=== PATIENT | female | born 1970 | race Caucasian/White ===

== ENCOUNTER 2018-06-09 13:50 | Emergency (ER) | payer OTHER ==
[~2018-06-09] VITALS: Ht 167.6 cm; Wt 57.6 kg
[2018-06-09 13:54] VITALS: BP 124/90
[2018-06-09 14:15] VITALS: BP 124/90
== END 2018-06-09 14:16 ==
LOC: MED 13:50
DX: H60.93 Unspecified otitis externa, bilateral (principal); Z02.89 Encounter for other administrative examinations; I10 Essential (primary) hypertension; F17.210 Nicotine dependence, cigarettes, uncomplicated
CPT/HCPCS: 99283

== ENCOUNTER 2019-01-29 02:52 | Inpatient (IN) | payer MEDICAID, OTHER ==
[~2019-01-29] VITALS: Ht 167.6 cm; Wt 59.0 kg
[2019-01-29 02:55] VITALS: BP 128/80
--- NOTE | 2019-01-29 03:46 | NUR ---
PT TAKEN TO BED 3
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
[2019-01-29] MEDS ORDERED: MORPHINE SULFATE 4 MG/ML SYR IVP ONE ×2 (06:35→10:10)
[2019-01-29 06:39] LABS: HEMOGLOBIN 12.2 g/dL (12.0-16.0); MEAN CORPUSCULAR HEMOGLOBIN 32 pg (27-31)
[2019-01-29 06:45] LABS: BASOPHILS % (AUTO) 0.3 % (0.0-2.0); EOSINOPHILS # (AUTO) 0.1 K/uL (0-0.4); HEMATOCRIT 35.5 % (36-48); LYMPHOCYTES # (AUTO) 2.5 K/uL (2.5-16.5); LYMPHOCYTES % (AUTO) 25.1 % (20.5-51.1); MEAN CORPUSCULAR HGB CONC 34 g/dL (33-37); MEAN CORPUSCULAR VOLUME 93.2 fL (80-94); MONOCYTES # (AUTO) 0.8 K/uL (0.8-1.0); MONOCYTES % (AUTO) 8.4 % (1.7-9.3); NEUTROPHILS # (AUTO) 6.6 K/uL (1.8-7.7); NEUTROPHILS % (AUTO) 65.2 % (42.2-75.2); PLATELET COUNT (AUTO) 205 K/uL (140-450); RED BLOOD CELL COUNT(AUTO) 3.81 MIL/uL (4.20-5.40); RED CELL DISTRIBUTION WIDTH 12.9 % (11.6-13.7); WHITE BLOOD COUNT (AUTO) 10.1 K/uL (4.8-10.8)
[2019-01-29 07:32] LABS: APPEARANCE,URINE CLEAR (CLEAR); BILIRUBIN,URINE NEGATIVE (NEGATIVE); BLOOD, URINE TRACE-I (NEGATIVE); COLOR,URINE YELLOW (YELLOW); LEUKOCYTE ESTERASE ,URINE NEGATIVE (NEGATIVE); NITRITE, URINE NEGATIVE (NEGATIVE); UGLUCOSE NEGATIVE (NEGATIVE)
[2019-01-29 08:05] LABS: ANION GAP 13.4 (8-16); CREATININE 0.8 mg/dL (0.6-1.3); POTASSIUM 3.4 mmol/L (3.5-5.1)
[2019-01-29 08:11] LABS: ALBUMIN 3.4 g/dL (3.4-5.0); TOTAL BILIRUBIN 0.8 mg/dL (0.0-1.0)
--- NOTE | 2019-01-29 08:23 | NUR ---
Patient appears to be resting in bed. Vital Signs within normal limits. Respirations even and unlabored.
--- NOTE | 2019-01-29 08:23 | NUR ---
Patient taken to CT scan via gurney by [employer].
--- NOTE | 2019-01-29 08:30 | NUR ---
RECEIVED REPORT FROM ADIA FITZGERALD FOR TRANSFER OF CARE
[2019-01-29 08:49] LABS: RBC,URINE 0-5 /HPF (0-5); WBC,URINE 0-5 /HPF (0-5)
--- NOTE | 2019-01-29 09:48 | NUR ---
DR HERNANDEZ AT BEDSIDE FOR PT RE EVALUATION
--- NOTE | 2019-01-29 09:55 | NUR ---
SWELLING NOTED TO LEFT UPPER ARM. DR HERNANDEZ MADE AWARE
--- NOTE | 2019-01-29 09:59 | NUR ---
ICE PACKS PROVIDED FOR ON PT'S LEFT ARM. PT TOLERATED WELL.
[2019-01-29] MEDS: NACL 0.9% 1,000 ML IV SCH (10:08)
[2019-01-29] MEDS ORDERED: CLINDAMYCIN 600 MG in DEXTROSE 5% 50 ML IV ONE (10:10)
[2019-01-29] MEDS ORDERED: MORPHINE SULFATE 2 MG/ML SYR IVP PRN (10:10)
[2019-01-29] MEDS ORDERED: ACETAMINOPHEN 325 MG TAB PO PRN (10:10)
[2019-01-29] MEDS ORDERED: ONDANSETRON 4 MG/2 ML VIAL IM/IVP PRN (10:10)
[2019-01-29] MEDS ORDERED: ONDANSETRON 4 MG/2 ML VIAL IVP ONE (10:10)
[2019-01-29] MEDS ORDERED: HYDROcodone/APAP 5/325 MG 1 TAB TAB PO PRN (10:10)
--- NOTE | 2019-01-29 10:23 | NUR ---
Dr. Mccormick evaluating patient at bedside.
--- NOTE | 2019-01-29 10:32 | NUR ---
laboratory technical specialist at bedside.
[2019-01-29] MEDS ORDERED: CLINDAMYCIN 600 MG/4 ML VIAL ONE (10:49)
[2019-01-29] MEDS ORDERED: KETOROLAC 30 MG/ML VIAL IM PRN (11:05)
[2019-01-29 11:09] LABS: PROTHROMBIN TIME 9.5 secs (10.8-13.4)
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
--- NOTE | 2019-01-29 11:15 | NUR ---
Patient will be admitted to care of DR MEEK. Admited to 112 B. Will go to room. Belongings list completed. Report to ADIA LONGO.
[2019-01-29 11:18] LABS: MAGNESIUM 1.9 mg/dL (1.8-2.4); PHOSPHORUS 3.5 mg/dL (2.5-4.9); THYROID STIMULATING HORMONE 0.76 uIU/mL (0.34-3.74)
[2019-01-29 11:55] VITALS: BP 121/81
[2019-01-29] MEDS ORDERED: POTASSIUM CHLORIDE 10 MEQ TABER PO SCH (12:00)
[2019-01-29] MEDS: KETOROLAC 30 MG/ML VIAL IVP PRN ×2 (12:11→18:32)
--- NOTE | 2019-01-29 12:14 | NUR ---
GAVE TORADOL 1ML PER MD ORDER. PT STABLE.
[2019-01-29 12:53] LABS: BARBITURATE, URINE NEG. ng/ml (NEG <=200); BENZODIAZEPINE, URINE NEG. ng/mL (NEG <=200); CANNABINOID, URINE NEG. ng/mL (NEG <=50); COCAINE, URINE NEG. ng/mL (NEG <=300); OPIATE, URINE NEG. ng/mL (NEG <=2000); PHENCYCLIDINE SCREEN,URINE NEG. ng/mL (NEG <=25)
--- NOTE | 2019-01-29 15:00 | NUR ---
PATIENT HAS BEEN SCREENED AND CATEGORIZED LOW NUTRITION RISK. PATIENT WILL BE SEEN WITHIN 7 DAYS OF ADMISSION. 02/04/[address]
--- NOTE | 2019-01-29 15:18 | NUR ---
PT SLEEPING COMFORTABLY. PT HAD XRAY OF LUMBAR SPINE DONE EARLIER. PAIN MEDS EFFECTIVE FOR PT. WILL CONTINUE TO MONITOR.
[2019-01-29 16:42] VITALS: BP 104/67
--- NOTE | 2019-01-29 19:10 | NUR ---
GAVE BEDSIDE REPORT TO EQUIPMENT PROCESSOR RN. PT STABLE.
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
--- NOTE | 2019-01-29 20:20 | NUR ---
PT TAKES A SHOWER.
[2019-01-29] MEDS: CLINDAMYCIN 600 MG in DEXTROSE 5% 50 ML IV SCH (21:04)
--- NOTE | 2019-01-29 21:04 | NUR ---
CHANGED DRESSING ON LEFT FOREARM D/T SOILED. GIVEN CLEOCIN MD ORDERED, PT TOLERATED WELL. WILL CONTINUE TO MONITOR.
--- NOTE | 2019-01-29 23:55 | NUR ---
VS CHECKED, WITHIN PT'S BASELINE. WILL CONTINUE TO MONITOR.
[2019-01-30] VITALS: BP 107/66
--- NOTE | 2019-01-30 02:05 | NUR ---
PT SLEEPING IN BED COMFORTABLY. NO ACUTE DISTRESS NOTED.
[2019-01-30] MEDS: NACL 0.9% 1,000 ML IV SCH ×2 (02:48→19:28)
[2019-01-30] MEDS: KETOROLAC 30 MG/ML VIAL IVP PRN ×2 (03:37→15:00)
--- NOTE | 2019-01-30 03:37 | NUR ---
PT C/O FACE PAIN 11/13, GIVEN TORADOL MD ORDERED. PT TOLERATED WELL. WILL CONTINUE TO MONITOR.
--- NOTE | 2019-01-30 05:25 | NUR ---
PT SLEEPING IN BED. NO ACUTE DISTRESS NOTED.
[2019-01-30] MEDS: CLINDAMYCIN 600 MG in DEXTROSE 5% 50 ML IV SCH (05:26)
[2019-01-30 06:07] LABS: T4 (THYROXINE) 6.3 ug/dL (4.5-12.0)
--- NOTE | 2019-01-30 06:30 | NUR ---
PT SLEEPING, APPEARS IN NO DISTRESS, ON RA. TORADOL GIVEN BY DIESEL TRAILER MECHANIC RN. RIGHT AC 18G RUNNING NS AT 60CC/HR. LEFT FOREARM STILL LOOKS SWOLLEN, WARM, MARKED WITH A PEN. RIGHT CHEEK ALSO STILL LOOK SWOLLEN. SKIN INTACT. WILL CONTINUE TO MONITOR.
[2019-01-30 07:05] LABS: ANION GAP 12.5 (8-16); CARBON DIOXIDE 23.7 mmol/L (21-32); CREATININE 0.6 mg/dL (0.6-1.3); POTASSIUM 4.2 mmol/L (3.5-5.1)
[2019-01-30 07:09] LABS: MAGNESIUM 1.9 mg/dL (1.8-2.4); PHOSPHORUS 3.1 mg/dL (2.5-4.9)
[2019-01-30 07:28] LABS: CHOL/HDL RATIO 2.2 (1-4.5)
[2019-01-30 07:33] VITALS: BP 117/70
[2019-01-30 07:33] LABS: BASOPHILS % (AUTO) 0.2 % (0.0-2.0); EOSINOPHILS # (AUTO) 0.1 K/uL (0-0.4); EOSINOPHILS % (AUTO) 0.8 % (0.0-4.0); HEMOGLOBIN 11.9 g/dL (12.0-16.0); MEAN CORPUSCULAR HEMOGLOBIN 32 pg (27-31); MEAN CORPUSCULAR HGB CONC 34 g/dL (33-37); MEAN CORPUSCULAR VOLUME 94.1 fL (80-94); MONOCYTES # (AUTO) 0.8 K/uL (0.8-1.0); MONOCYTES % (AUTO) 9.2 % (1.7-9.3); NEUTROPHILS # (AUTO) 5.8 K/uL (1.8-7.7); NEUTROPHILS % (AUTO) 66.8 % (42.2-75.2); PLATELET COUNT (AUTO) 193 K/uL (140-450); RED BLOOD CELL COUNT(AUTO) 3.72 MIL/uL (4.20-5.40); RED CELL DISTRIBUTION WIDTH 13.2 % (11.6-13.7); WHITE BLOOD COUNT (AUTO) 8.7 K/uL (4.8-10.8)
[2019-01-30] MEDS: AMPICILLIN/SULBACTAM 3 GM in NACL 0.9% 100 ML IV SCH ×2 (11:41→17:12)
[2019-01-30] MEDS: MORPHINE SULFATE 2 MG/ML SYR IVP PRN ×2 (12:17→23:05)
--- NOTE | 2019-01-30 12:18 | NUR ---
PT IN DISTRESS D/T PAIN. GAVE MORPHINE FOR 7/10 SHARP RIGHT CHEEK PAIN. PT STABLE
--- NOTE | 2019-01-30 12:40 | NUR ---
Basketball Assembler Note: I met with patient at bedside to conduct assessment. Patient stated she is in pain and does not want to talk at this time. I asked her if her nurse is aware she is in pain. She responded she was given pain medication recently. I explained to her I was going to meet with her at a later time. Per patient's nurse Richelle, she is aware pain is stating she is in pain and administered pain medication recently.
--- NOTE | 2019-01-30 15:06 | NUR ---
GAVE TORADOL PER MD ORDER FOR DULL 7/10 FACIAL PAIN. HUNG NEW PRIMARY BAG. WILL CONTINUE TO MONITOR.
[2019-01-30 16:30] VITALS: BP 122/74
--- NOTE | 2019-01-30 17:34 | NUR ---
BENJIE URRUTIA. PT DENIES ANY PAIN. WILL CONTINUE TO MONITOR.
--- NOTE | 2019-01-30 18:14 | NUR ---
PT CONTACT FOR MRSA NARES. NOTIFIED . SIGN POSTED OUTSIDE.
[2019-01-30] MEDS: MUPIROCIN CA NASAL 2% 1GM TUBE NS SCH (18:37)
[2019-01-30] MEDS: CHLORHEXADINE GLUC 2% CLOTH TP SCH (18:38)
--- NOTE | 2019-01-30 19:17 | NUR ---
RECIEVED PT AAOX4 ,NID , ON RA , IV SITE INTACT , WITH BEARABLE PAIN , PLAN OF CARE DISCUSSED AND VERBALIZE UNDERSTANDING. CALL LIGHT WITHIN REACH , WILL CONT. TO MONITOR.
--- NOTE | 2019-01-30 19:17 | NUR ---
ENDORSED PT TO CORPORATE ACCOUNTING MANAGER RN. PT STABLE.
--- NOTE | 2019-01-30 22:30 | NUR ---
RECD REPORT FROM ADIA FARR. PATIENT RESTING IN BED, AWAKE, A/OX4, SEEMS DROWSY. RESPIRATION EVEN AND UNLABORED. IV OF NS AT 60 ML/HR, RIGHT AC G18. NO COMPLAINT OF PAIN 0/10.
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
--- NOTE | 2019-01-30 23:31 | NUR ---
Patient's Plan of Care was discussed and reviewed with WASTE DISPOSAL PLANT OPERATOR: ZIA PURI
[2019-01-31] VITALS: BP 106/84
--- NOTE | 2019-01-31 | NUR ---
IV SITE WITH BLOOD AND A LITTLE OUT. TAKEN OUT, WILL INSERT NEW IV LINE. WANTS PAIN MEDICATION, REMINDED THAT SHE WAS GIVEN MORPHINE AT 2305. STILL VERY UPSET, SAYING BAD WORDS.
--- NOTE | 2019-01-31 00:10 | NUR ---
NEW IV LINE INSERTED BY CHARGE NURSE SHILA AT THE LEFT FOREARM G 22.
[2019-01-31] MEDS: AMPICILLIN/SULBACTAM 3 GM in NACL 0.9% 100 ML IV SCH ×5 (00:38→23:18)
[2019-01-31] MEDS: KETOROLAC 30 MG/ML VIAL IVP PRN ×3 (00:38→16:31)
--- NOTE | 2019-01-31 01:00 | NUR ---
IN BED, TALKING LOUD AND LOTS OF SENTENCES WITH FUCK, FUCKING. JUICES GIVEN REQUESTED. STILL VERY UPSET, SEEMS NOTHING PLEASES HER, LOOKS AT NURSES SHARPLY.
--- NOTE | 2019-01-31 02:30 | NUR ---
SLEEPING IN BED COMFORTABLY.
--- NOTE | 2019-01-31 04:20 | NUR ---
STILL SLEEPING COMFORTABLY IN BED. NO DISTRESS NOTED.
--- NOTE | 2019-01-31 07:00 | NUR ---
STILL SLEEPING COMFORTABLY IN BED. NO DISTRESS NOTED. CONDITION REMAIN STABLE.
--- NOTE | 2019-01-31 07:01 | NUR ---
RECEIVED BEDSIDE REPORT FROM DATABASE ENGINEER NURSE. PATIENT IS AWAKE, ALERT AND ORIENTEDX4. NO SIGNS OF DISTRESS ON RA. SKIN IS INTACT. R CHEEK HAS REDNESS. PATIENT IS AMBULATORY. CONTINENT. L FA 22G INFUSING NS AT 60. CLEAN, DRY, AND INTACT. PATIENT ABLE TO MAKE NEEDS KNOWN. WILL CONTINUE TO MONITOR THE PATIENT
[2019-01-31 07:50] LABS: BASOPHILS % (AUTO) 0.5 % (0.0-2.0); EOSINOPHILS # (AUTO) 0.1 K/uL (0-0.4); EOSINOPHILS % (AUTO) 1.6 % (0.0-4.0); HEMATOCRIT 34.3 % (36-48); HEMOGLOBIN 11.6 g/dL (12.0-16.0); LYMPHOCYTES # (AUTO) 2.3 K/uL (2.5-16.5); LYMPHOCYTES % (AUTO) 30.2 % (20.5-51.1); MEAN CORPUSCULAR HEMOGLOBIN 32 pg (27-31); MEAN CORPUSCULAR HGB CONC 34 g/dL (33-37); MEAN CORPUSCULAR VOLUME 94.8 fL (80-94); MONOCYTES # (AUTO) 0.8 K/uL (0.8-1.0); MONOCYTES % (AUTO) 10.2 % (1.7-9.3); NEUTROPHILS # (AUTO) 4.4 K/uL (1.8-7.7); NEUTROPHILS % (AUTO) 57.5 % (42.2-75.2); PLATELET COUNT (AUTO) 188 K/uL (140-450); RED BLOOD CELL COUNT(AUTO) 3.61 MIL/uL (4.20-5.40); RED CELL DISTRIBUTION WIDTH 13.3 % (11.6-13.7); WHITE BLOOD COUNT (AUTO) 7.7 K/uL (4.8-10.8)
[2019-01-31 07:59] LABS: CARBON DIOXIDE 25.1 mmol/L (21-32); CREATININE 0.6 mg/dL (0.6-1.3); MAGNESIUM 1.9 mg/dL (1.8-2.4); PHOSPHORUS 3.5 mg/dL (2.5-4.9); POTASSIUM 4.1 mmol/L (3.5-5.1)
[2019-01-31 08:00] VITALS: BP 114/93
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
--- NOTE | 2019-01-31 10:09 | NUR ---
PATIENT IS SLEEPING. NO SIGNS OF DISTRESS. WILL CONTINUE TO MONITOR THE PATIENT
--- NOTE | 2019-01-31 11:15 | NUR ---
Info Specialist Note: I met with patient at bedside to conduct assessment. Per patient, she does not want to provide information for assessment.
[2019-01-31] MEDS: NACL 0.9% 1,000 ML IV SCH ×2 (12:08→16:33)
--- NOTE | 2019-01-31 12:21 | NUR ---
ADMINISTERED [facility] MED. PATIENT TOLERATED WELL. EDUCATED ON SIDE EFFECTS. PATIENT IS UPSET THAT SHE HAS HER IV WRAPPED IN KERLIX. FLUSHED LINE, LINE IS PATENT. PATIENT ASKED ME TO TELL ROUND UP RING HAND TO CIGAR ROLLER HER TRAY AND GIVE HER CRANBERRY, OJ, AND APPLE JUICE. I THREW AWAY HER TRAY AND SHE SAID THE ROUND UP RING HAND IS THE MAID AND THAT ITS HER JOB. I TOLD HER I WOULD ASK ROUND UP RING HAND TO GIVE HER JUICE ASKED
--- NOTE | 2019-01-31 13:31 | NUR ---
PATIENT IS SLEEPING. NO SIGNS OF DISTRESS. WILL CONTINUE TO MONITOR
--- NOTE | 2019-01-31 14:56 | NUR ---
PATIENT IS STILL SLEEPING. NO SIGNS OF DISTRESS. WILL CONTINUE TO MONITOR THE PATIENT
[2019-01-31 16:00] VITALS: BP 118/76
--- NOTE | 2019-01-31 16:34 | NUR ---
PATIENT TRANSFERRED TO 113. ADMINISTERED PRN PAIN MED. PATIENT TOLERATED WELL. EDUCATED ON SIDE EFFECTS. ALL BELONGINGS BACK WITH THE PATIENT. BED IN LOW POSITION. CALL LIGHT WITHIN REACH
[2019-01-31] MEDS: MUPIROCIN CA NASAL 2% 1GM TUBE NS SCH (18:41)
[2019-01-31] MEDS: CHLORHEXADINE GLUC 2% CLOTH TP SCH (18:42)
--- NOTE | 2019-01-31 18:51 | NUR ---
ADMINISTERED [facility] MEDICATIONS. EDUCATED ON SIDE EFFECTS. PATIENT TOLERATED WELL
--- NOTE | 2019-01-31 19:05 | NUR ---
GAVE BEDSIDE REPORT FROM BOWL ATTENDANT NURSE. PATIENT ENDORSED IN STABLE CONDITION
--- NOTE | 2019-01-31 19:06 | NUR ---
RECEIVED BEDSIDE REPORT FROM DAY RN. PT IS AAOX3-4 ON RA RESPIRATIONS ARE EQUAL AND UNLABORED. ON CONTACT ISOLATION FOR MRSA OF NARES 2 TREATMENT TODAY. DX FACIAL CELLULITIS BEING TREATING ON IV ANTIBIOTICS. IV ON L WRIST 22G IVF INFUSING PER ORDERS. SKIN IS INTACT. PT IS AMBULATORY AND ABLE TO MAKE NEEDS KNOWN. PLAN OF CARE DISCUSSED WITH PT. CALL LIGHT IS WITHIN REACH. WILL ROUND FREQUENTLY.
--- NOTE | 2019-01-31 20:00 | NUR ---
WRAPPED PATIENTS IV AND GAVE 2 TOWELS AND BLANKETS PER REQUEST. ORDER STATES PT ALLOWED TO SHOWER. ALL NEEDS MET WILL CONTINUE TO MONITOR.
--- NOTE | 2019-01-31 20:40 | NUR ---
PATIENT DONE SHOWERING. RECONNECTED IV.IVF NOW INFUSING PER ORDERS. ALL NEEDS MET AT THIS TIME. CALL LIGHT WITHIN REACH.
--- NOTE | 2019-01-31 22:00 | NUR ---
PATIENT IS SLEEPING IN BED. CHEST RISE AND FALL. WILL CONTINUE TO MONITOR.
[2019-01-31] MEDS: MORPHINE SULFATE 2 MG/ML SYR IVP PRN (23:25)
--- NOTE | 2019-01-31 23:25 | NUR ---
IV ANTIBIOTIC NOW INFUSING PER ORDERS. VITAL SIGNS ARE WITHIN NORMAL LIMITS. ADMINISTERED MORPHINE FOR CHEEK PAIN 12/13. ALL NEEDS MET AT THIS TIME. WILL CONTINUE TO MONITOR.
[2019-01-31 23:55] VITALS: BP 125/79
--- NOTE | 2019-02-01 00:29 | NUR ---
PATIENT IS SLEEPING COMFORTABLY IN BED. CHEST RISE AND FALL. CALL LIGHT IS WITHIN REACH.
--- NOTE | 2019-02-01 01:55 | NUR ---
ASSISTED PATIENT TO BATHROOM. GAVE CRANBERRY JUICE PER REQUEST. ALL NEEDS MET AT THIS TIME. CALL LIGHT IS WITHIN REACH. WILL CONTINUE TO MONITOR.
--- NOTE | 2019-02-01 02:59 | NUR ---
GAVE BEDSIDE REPORT TO RN. PT IN STABLE CONDITION. SLEEPING CHEST RISE AND FALL.
--- NOTE | 2019-02-01 03:00 | NUR ---
REPORT RECEIVED FROM PABLITO CHEEK AT BEDSIDE. PT IN STABLE CONDITION. AAOX4. PT IS CURRENTLY SLEEPING. NO S/S OF DISTRESS NOTED. WILL CONTINUE WITH CURRENT PLAN OF CARE.
[2019-02-01] MEDS: AMPICILLIN/SULBACTAM 3 GM in NACL 0.9% 100 ML IV SCH (05:06)
--- NOTE | 2019-02-01 05:06 | NUR ---
UNASYN HUNG AND RUNNING. PT TOLERATING WELL.
--- NOTE | 2019-02-01 06:00 | NUR ---
PT SLEEPING BUT AROUSABLE. NO S/S OF DISTRESS NOTED. NO COMPLAINTS OF PAIN. NO SOB. AFEBRILE. WILL CONTINUE TO MONITOR.
[2019-02-01 07:11] LABS: BASOPHILS % (AUTO) 0.4 % (0.0-2.0); EOSINOPHILS # (AUTO) 0.1 K/uL (0-0.4); EOSINOPHILS % (AUTO) 1.7 % (0.0-4.0); HEMATOCRIT 35.1 % (36-48); HEMOGLOBIN 11.8 g/dL (12.0-16.0); LYMPHOCYTES % (AUTO) 23.5 % (20.5-51.1); MEAN CORPUSCULAR HEMOGLOBIN 32 pg (27-31); MEAN CORPUSCULAR HGB CONC 34 g/dL (33-37); MEAN CORPUSCULAR VOLUME 94.3 fL (80-94); MONOCYTES # (AUTO) 0.8 K/uL (0.8-1.0); MONOCYTES % (AUTO) 9.3 % (1.7-9.3); NEUTROPHILS # (AUTO) 5.4 K/uL (1.8-7.7); NEUTROPHILS % (AUTO) 65.1 % (42.2-75.2); PLATELET COUNT (AUTO) 210 K/uL (140-450); RED BLOOD CELL COUNT(AUTO) 3.72 MIL/uL (4.20-5.40); RED CELL DISTRIBUTION WIDTH 13.2 % (11.6-13.7); WHITE BLOOD COUNT (AUTO) 8.3 K/uL (4.8-10.8)
--- NOTE | 2019-02-01 07:20 | NUR ---
RECEIVED BEDSIDE REPORT FROM WELT STITCHER NURSE. PATIENT IS AWAKE, ALERT AND ORIENTEDX4. NO SIGNS OF DISTRESS ON RA. SKIN IS INTACT. IV ON L WRIST 22G INFUSING NS AT 60. CLEAN, DRY AND INTACT. PATIENT IS AMBULATORY. CONTINENT. ABLE TO MAKE NEEDS KNOWN. WILL CONTINUE TO MONITOR THE PATIENT
[2019-02-01 07:45] LABS: MAGNESIUM 1.7 mg/dL (1.8-2.4); PHOSPHORUS 4.2 mg/dL (2.5-4.9)
[2019-02-01 07:57] LABS: ANION GAP 13.1 (8-16); CARBON DIOXIDE 25.8 mmol/L (21-32); CREATININE 0.7 mg/dL (0.6-1.3); POTASSIUM 3.9 mmol/L (3.5-5.1)
[2019-02-01 08:00] VITALS: BP 131/82
[2019-02-01] MEDS: KETOROLAC 30 MG/ML VIAL IVP PRN (08:47)
--- NOTE | 2019-02-01 08:47 | NUR ---
ADMINISTERED PRN PAIN MED. PATIENT EDUCATED ON SIDE EFFECTS. WILL CONTINUE TO MONITOR THE PATIENT
[2019-02-01] MEDS ORDERED: MAGNESIUM OXIDE 400 MG TAB PO SCH (09:30)
--- NOTE | 2019-02-01 10:15 | NUR ---
ADMINISTERED [facility] MED. PATIENT TOLERATED WELL. NO SIGNS OF DISTRESS. WILL CONTINUE TO MONITOR THE PATIENT
[2019-02-01] MEDS ORDERED: AMOX-1000 PO (10:52)
[2019-02-01] MEDS ORDERED: DIGE1CAP PO (11:00)
[2019-02-01] MEDS ORDERED: CALCIUM CARBONATE 500 MG TAB.CHEW PO SCH (11:30)
[2019-02-01] MEDS ORDERED: CHLO118S2 TP (11:42)
[2019-02-01] MEDS ORDERED: MUPI2CRE22 NS (11:42)
--- NOTE | 2019-02-01 12:00 | NUR ---
EDUCATED ON DISEASE PROCESS, ABN S/SX, WHEN TO GO TO THE ER, EDUCATED ON MEDS GAVE PRESCRIPTIONS, EDUCATED ON FOLLOW UP A DENTIST, GAVE PATIENT APPOINTMENT INFORMATION. PATIENT REFUSED PNA VACCINE AT THIS TIME, FLU IS UP TO DATE. REMOVED IV, TIP INTACT. ID BANDS REMOVED. PATIENT LEFT WITH BUS PASS, TO GO RUN [place], AND WAS IN STABLE CONDITION. ALL BELONGINGS W PATIENT AND PAPERWORK WAS SIGNED
== END 2019-02-01 12:00 | disposition home or self-care (01) | DRG 206 ==
LOC: MED 02:52 → MTU 10:08
PROVIDERS: ADMIT General Practice; ATTEND General Practice
DX: T80.818A Extravasation of other vesicant agent, initial encounter (principal); E87.1 Hypo-osmolality and hyponatremia; K04.7 Periapical abscess without sinus; L03.211 Cellulitis of face; E87.6 Hypokalemia; J45.909 Unspecified asthma, uncomplicated; D64.9 Anemia, unspecified; F60.9 Personality disorder, unspecified; Y84.8 Other medical procedures as the cause of abnormal reaction of the patient, or of later complication, without mention of misadventure at the time of the procedure; Y92.89 Other specified places as the place of occurrence of the external cause; Z22.322 Carrier or suspected carrier of Methicillin resistant Staphylococcus aureus; Z98.82 Breast implant status
CPT/HCPCS: 36415; 70487; 71045; 72110; 80048; 80053; 80305; 81001; 81025; 82150; 83036; 83605; 83690; 83735; 83880; 84100; 84436; 84443; 85025; 85610; 85730; 87040; 87081; 96374; 96375; 96376; 99285; J0295; J1885; J2270; J2405; J3490; J7030; J7060; Q0092; Q9967